=== PATIENT | female | born 1995 | race Caucasian/White ===

== ENCOUNTER 2019-05-11 11:27 | Emergency (ER) | payer BC, OTHER ==
[2019-05-11 12:27] VITALS: BP 132/69
--- NOTE | 2019-05-11 12:37 | UC ---
Abdominal Pain Female HPI - HPI Summary HPI Summary: Pt presents with c/o sudden onset of pinching, pain RLQ that began suddenly while sitting at desk at work. The pt states she saw a "lump" protruding from RLQ that has since resolved. - History of Current Complaint Stated Complaint: SKIN - STOMACH Time Seen by Provider: 05/11/19 11:39 Hx Obtained From: Patient Hx Last Menstrual Period: ONSET TODAY ?: No Onset/Duration: Sudden Onset, Resolved Timing: Constant Severity Initially: Moderate Severity Currently: None Pain Intensity: 3 Location: Discrete At: RLQ Radiates: No Character: Sharp, Other - "pinching" Aggravating Factor(s): Movement Alleviating Factor(s): Other: - self limiting Associated Signs and Symptoms: Positive: Negative - Risk Factors Ectopic Risk Factor: Negative Ovarian Torsion Risk Factor: Reproductive Age Allergies/Adverse Reactions: Allergies Allergy/AdvReac Type Severity Reaction Status Date / Time amoxicillin Allergy Unknown Rash And Verified 05/11/19 12:18 Itching cefazolin [From Kefzol] Allergy Unknown Hives Verified 05/11/19 12:18 PMH/Surg Hx/FS Hx/Imm Hx Previously Healthy: Yes - Surgical History Surgical History: None - Family History Known Family History: Positive: None, Cardiac Disease - Social History Occupation: Employed Full-time Lives: With Family Alcohol Use: Rare Substance Use Type: None Smoking Status (MU): Never Smoked Tobacco Have You Smoked in the Last Year: No - Immunization History Most Recent Influenza Vaccination: 2014 Vaccination Up to Date: Yes Review of Systems All Other Systems Reviewed And Are Negative: Yes Constitutional: Positive: Negative Skin: Positive: Negative Eyes: Positive: Negative ENT: Positive: Negative Respiratory: Positive: Negative Cardiovascular: Positive: Negative Gastrointestinal: Positive: Abdominal Pain Genitourinary: Positive: Negative Motor: Positive: Negative Neurovascular: Positive: Negative Musculoskeletal: Positive: Negative Neurological: Positive: Negative Psychological: Positive: Negative Is Patient Immunocompromised?: No Physical Exam Triage Information Reviewed: Yes Appearance: Well-Appearing Vital Signs: Initial Vital Signs Temp 98.3 F 05/11/19 12:19 Pulse 68 05/11/19 12:19 Resp 17 05/11/19 12:19 BP 132/69 05/11/19 12:19 Pulse Ox 100 05/11/19 12:19 Vital Signs Reviewed: Yes Eye Exam: Normal ENT Exam: Normal Dental Exam: Normal Neck exam: Normal Respiratory Exam: Normal Cardiovascular Exam: Normal Abdominal Exam: Normal, Other - non lump, mass or bulgin appreciate on exam, no hernia or reflex of pain noted Abdomen Description: Positive: Nontender Bowel Sounds: Positive: Present Musculoskeletal Exam: Normal Neurological Exam: Normal Psychological Exam: Normal Skin Exam: Normal Abd Pain Female Course/Dx - Course Course Of Treatment: Pt deneis risk for as her menses began today. Pt also denies hx of ovarian cysts or hernia - Differential Dx/Diagnosis Differential Diagnosis: Ovarian Cyst, Other - hernia Provider Diagnosis: RLQ abdominal pain Discharge - Sign-Out/Discharge Documenting (check all that apply): Patient Departure All imaging exams completed and their final reports reviewed: No Studies - Discharge Plan Condition: Stable Disposition: HOME Patient Education Materials: Acute Abdominal Pain (ED) [place]: [facility] [place] [facility] [place]] - If Needed No Primary Care Phys,NOPCP [Primary Care Provider] - - Billing Disposition and Condition Condition: STABLE Disposition: Home
== END 2019-05-11 12:46 | disposition home or self-care (01) ==
LOC: UCCORT 11:27
DX: R10.31 Right lower quadrant pain (principal); Z88.1 Allergy status to other antibiotic agents; Z88.0 Allergy status to penicillin
CPT/HCPCS: 99211; G0463